=== PATIENT | female | born 1995 ===

== ENCOUNTER 2017-08-16 08:30 | Outpatient (RCR) | payer OTHER | END 2017-09-07 | disposition home or self-care (01) | LOC: PTY 08:30 | DX: S52.531A Colles' fracture of right radius, initial encounter for closed fracture (principal); X58.XXXA Exposure to other specified factors, initial encounter; Y93.A9 Activity, other involving cardiorespiratory exercise; Y92.39 Other specified sports and athletic area as the place of occurrence of the external cause ==